=== PATIENT | female | born 1965 | race Caucasian/White ===

== ENCOUNTER 2020-09-15 16:04 | Outpatient (CLI) | payer OTHER | END 2020-09-15 16:05 | disposition critical access hospital (66) | LOC: EMS 16:04 | PROVIDERS: ATTEND Surgery | DX: R55 Syncope and collapse (principal) | CPT/HCPCS: A0425; A0427 ==

== ENCOUNTER 2020-09-15 16:52 | Emergency (ER) | payer OTHER ==
[2020-09-15] MEDS ORDERED: SODIUM CHLORIDE 0.9% 1,000 ML IV STA (17:16)
--- NOTE | 2020-09-15 17:45 | ED Physician Documentation ---
History of Present Illness - Stated complaint Stated Complaint: SYNCOPE - Chief complaint Chief Complaint: General - Additonal information Additional information: 55-year-old woman Former smoker with past medical history hypothyroidism now r esolved presents with syncopal episode today. Per patient and she was lifting hay larry and did not have much food for breakfast, did not drink over the course of the day and began to feel lightheaded while sitting in the car, Then experienced a wave of nausea and syncopal episode witnessed by . Denies head trauma, chest pain, focal neurological deficits seizure-like activity, incontinence. Endorses marijuana use today. Per EMS report patient was hypotensive on arrival, with improvement status post 400 cc IV fluids.Fingerstick normal on scene Review of Systems Ten Systems: 10 systems reviewed and negative Constitutional: denies: Fever, Chills Cardiac: denies: Chest pain / pressure Respiratory: denies: Dyspnea, Cough Neurologic: reports: Syncope PD PAST MEDICAL HISTORY - Past Medical History Endocrine/Autoimmune: HyPOthyroidism GI: Other - Past Surgical History Past Surgical History: Yes HEENT: Tonsil/Adenoidectomy - Allergies Allergies/Adverse Reactions: Allergies Allergy/AdvReac Type Severity Reaction Status Date / Time No Known Drug Allergies Allergy Verified 09/15/20 17:08 - Social History Does the pt smoke?: No Smoking Status: Never smoker Substance Use and Type: Marijuana - Immunizations Immunizations are current?: Yes PD ED PE NORMAL - General General: Alert and oriented X 3 - HEENT HEENT: Atraumatic, PERRL, EOMI - Neck Neck: Supple, no meningeal sign - Cardiac Cardiac: RRR, No murmur, No gallop, No rub - Respiratory Respiratory: No respiratory distress, Clear bilaterally - Abdomen Abdomen: Normal bowel sounds, Soft, Non tender, Non distended - Female Female : Deferred - Rectal Rectal: Deferred - Back Back: No spinal TTP - Derm Derm: Normal color, Warm and dry - Extremities Extremities: No deformity, No edema - Neuro Neuro: Alert and oriented X 3, 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, No motor deficit, No sensory deficit, Normal speech - Psych Psych: Normal mood, Normal affect Results - Vitals Vitals: Vital Signs - 24 hr 09/15/20 09/15/20 09/15/20 16:54 17:37 18:06 Temperature 36.9 C Heart Rate 91 95 89 Respiratory 16 16 16 Rate Blood Pressure 136/84 H 107/67 97/57 L O2 Saturation 99 98 98 09/15/20 18:57 Temperature Heart Rate 66 Respiratory 16 Rate Blood Pressure 102/64 O2 Saturation 98 Oxygen O2 Source Room air - EKG (time done) 78 Rate: Rate (enter#) Rhythm: NSR [place]: Normal Intervals: Normal DE QRS: Normal Ischemia: Normal ST segments Computer interpretation: Agree with computer - Labs Labs: Laboratory Tests 09/15/20 09/15/20 09/15/20 17:55 17:55 17:55 WBC 11.6 H RBC 4.59 Hgb 13.5 Hct 42.1 MCV 91.7 MCH 29.4 MCHC 32.1 RDW 14.3 Plt Count 384 MPV 9.8 Neut # (Auto) 8.0 H Lymph # (Auto) 2.3 [place] # (Auto) 0.9 Eos # (Auto) 0.2 Baso # (Auto) 0.1 Absolute Nucleated RBC 0.00 Nucleated RBC % 0.0 Sodium 141 Potassium 4.0 Chloride 106 Carbon Dioxide 24 Anion Gap 11.0 BUN 15 Creatinine 0.8 Estimated GFR (MDRD) 74 L Glucose 108 H Calcium 9.0 Total Bilirubin 0.3 AST 14 ALT 13 Alkaline Phosphatase 61 Troponin I High Sens 3.1 Total Protein 6.8 Albumin 4.0 Globulin 2.8 Albumin/Globulin Ratio 1.4 Lipase 33 PD MEDICAL DECISION MAKING - ED course Complexity details: reviewed results, re-evaluated patient, d/w patient, d/w family ED course: 55-year-old female previously healthy presents with low risk syncopal episode Per [place] syncope rule. Patient now asymptomatic With improvement in dizziness status post IV fluids. Strict return precautions given. Plan to follow-up outpatient with her primary doctor and recommend cardiology as well. Departure - Departure Disposition: 01 Home, Self Care Clinical Impression: Syncope Condition: Good Instructions: ED Syncope Vasovagal Comments: Please call and follow up with your primary doctor in 1-2 days regarding your emergency department visit. remember to stay hydrated. return to the ed for any worsening of symptoms. Discharge Date/Time: 09/15/20 19:05
--- NOTE | 2020-09-15 17:59 | XRAY Report ---
PROCEDURE: Chest 1 View X-Ray INDICATIONS: Chest Pain TECHNIQUE: One view of the chest was acquired. COMPARISON: None. FINDINGS: Surgical changes and devices: None. Lungs and pleura: No pleural effusions or pneumothorax. Lungs are clear. Mediastinum: Mediastinal contours appear normal. Heart size is normal. Bones and chest wall: No suspicious bony lesions. Overlying soft tissues appear unremarkable. IMPRESSION: Chest without acute cardiopulmonary abnormalities. Reviewed by: Ramakrishna Brown MD on 09/15/2020 5:57 PM PDT Approved by: Ramakrishna Brown MD on 09/15/2020 5:57 PM PDT Station ID: [id number]
[2020-09-15 18:06] LABS: BASOPHILS # (AUTO) 0.1 10^3/uL (0.0-0.1); BASOPHILS % (AUTO) 0.4 %; EOSINOPHILS # (AUTO) 0.2 10^3/uL (0.0-0.7); EOSINOPHILS % (AUTO) 1.6 %; HGB - HEMOGLOBIN 13.5 g/dL (12.0-16.0); LYMPHOCYTES # (AUTO) 2.3 10^3/uL (1.5-3.5); LYMPHOCYTES % (AUTO) 20.2 %; MEAN CORPUSCULAR HEMOGLOBIN 29.4 pg (27.0-31.0); MEAN CORPUSCULAR HGB CONC 32.1 g/dL (32.0-36.0); MEAN CORPUSCULAR VOLUME 91.7 fL (81.0-99.0); MEAN PLATELET VOLUME 9.8 fL (7.9-10.8); MONOCYTES # (AUTO) 0.9 10^3/uL (0.0-1.0); MONOCYTES % (AUTO) 8.1 %; NEUTROPHILS % (AUTO) 69.2 %; PLT - PLATELET COUNT 384 10^3/uL (130-450); RED BLOOD COUNT 4.59 10^6/uL (4.20-5.40); RED CELL DISTRIBUTION WIDTH 14.3 % (12.0-15.0); WHITE BLOOD COUNT 11.6 x10^3/uL (4.8-10.8)
[2020-09-15 18:15] LABS: ALBUMIN/GLOBULIN RATIO 1.4 (1.0-2.2); BILIRUBIN,TOTAL 0.3 mg/dL (0.2-1.0); CREATININE 0.8 mg/dL (0.4-1.0); TOTAL PROTEIN 6.8 g/dL (6.7-8.2)
[2020-09-15 18:59] VITALS: BP 102/64
== END 2020-09-15 19:05 | disposition home or self-care (01) ==
LOC: ED 16:52
DX: R55 Syncope and collapse (principal); I95.9 Hypotension, unspecified; R42 Dizziness and giddiness; Z87.891 Personal history of nicotine dependence
CPT/HCPCS: 36415; 71045; 80053; 83690; 84484; 85025; 93005; 99282; 99284

== ENCOUNTER 2020-10-01 16:40 | Outpatient (CLI) | payer OTHER | END 2020-10-01 16:41 | disposition home or self-care (01) | LOC: COV 16:40 | PROVIDERS: ATTEND Family Medicine | DX: R19.7 Diarrhea, unspecified (principal); Z20.828 Contact with and (suspected) exposure to other viral communicable diseases ==